=== PATIENT | male | born 1980 | race Caucasian/White ===

== ENCOUNTER → 2018-06-12 22:20 | Outpatient (CLI) | payer BC, SELFPAY ==
[2018-06-12 17:37] VITALS: BMI 33.7
[2018-06-12 22:49] LABS: Absolute Lymphocyte Count 1.81 X10^3/ul (0.83-4.51); Absolute Neutrophil Count 3.3 X10^3/uL (2.0-7.7); Basophil# 0.03 X10^3/uL; Basophil% 0.5 % (0-1); Eosinophil# 0.07 X10^3/uL; Eosinophils% 1.2 % (0-5); Hematocrit 44.2 % (40-54); Hemoglobin 15.4 g/dl (13.0-16.5); Lymphocyte # 1.81 X10^3/ul (4.0); Lymphocyte % 31.9 % (19-41); Mean Corp Hgb Conc 34.8 g/gl (32-36); Mean Corpuscular Hgb 29.8 pg (27.0-32.0); Mean Corpuscular Volume 85.5 fL (80-94); Mean Platelet Vol. 10.4 fl (6.2-12.0); Monocyte# 0.47 X10^3/uL; Monocyte% 8.3 % (0-10); Neutrophil # 3.27 X10^3/uL (2.7-7.7); Neutrophil % 57.7 % (47-70); Platelet Count 210 K/mm3 (150-450); RBC Distribution Width CV 12.8 % (11.6-14.6); RBC Distribution Width SD 38.8 fl (35.1-43.9); Red Blood Count 5.17 M/mm3 (4.6-6.2); White Blood Count 5.7 K/mm3 (4.4-11.0)
[2018-06-12 22:53] LABS: POSITIVE COUNT NO; POSITIVE DIFFERENTIAL NO; POSITIVE MORPHOLOGY NO
[2018-06-12 22:57] LABS: ALB/GLOB Ratio 1.3 RATIO (0.9-2.4); AST(SGOT) 36 U/L (15-37); Alanine Aminotransfer ALT/SGPT 65 U/L (16-61); Albumin, Serum 4.2 g/dL (3.2-5.0); Alkaline Phosphatase 72 U/L (45-117); Anion Gap 9 (5-15); BUN 16 mg/dL (7-18); BUN/Creat Ratio 14.3 RATIO (10-20); Calcium,Total 8.4 mg/dL (8.5-10.1); Chloride 102 mmol/L (98-107); Cholesterol 184 mg/dL (200); Creatinine, Serum 1.12 mg/dL (0.70-1.30); EST Glomerular Filtration Rate 77 mL/min (>60); Est Glom Filt Rate - Afr Amer 93 mL/min (>60); Globulin 3.3 g/dL (2.2-4.2); Glucose 91 mg/dL (74-106); High Density Lipoprotein 51 mg/dL; Potassium 3.7 mmol/L (3.5-5.1); Protein, Total 7.5 g/dL (6.4-8.2); Sodium Level 140 mmol/L (136-145); Triglycerides 117 mg/dL; Very Low Density Lipoprotein 23 mg/dL (5-40)
== END ==
PROVIDERS: Referring Provider Nurse Practitioner; Visit Provider Nurse Practitioner
DX: F41.9 Anxiety disorder, unspecified (principal)
CPT/HCPCS: 80053; 80061; 85025

== ENCOUNTER → 2019-11-17 17:45 | Outpatient (CLI) | payer BC, SELFPAY ==
[2019-11-13 16:11] VITALS: BMI 30.7
== END ==
LOC: MTDU 17:45
PROVIDERS: PCP Nurse Practitioner; Referring Provider Nurse Practitioner; Visit Provider Nurse Practitioner
DX: R42 Dizziness and giddiness (principal)
CPT/HCPCS: 87635; 94799; U0003

== ENCOUNTER 2020-03-01 10:14 | Emergency (ER) | payer BC, SELFPAY ==
[2019-11-13 16:11] VITALS: BMI 30.7
[2020-03-01 10:15] VITALS: BP 118/65; PULSE 69; RESP 16; TEMP 36.6; O2SAT 98; BMI 30.9
--- NOTE | 2020-03-01 10:25 | CT_ITS ---
INDICATION: INTERMITTENT RLQ PAIN, N/D -- SURG-HEMORRHOIDECTOMY EXAMINATION: CT ABDOMEN AND PELVIS WITH CONTRAST - CT Abdomen And Pelvis W/ Contrast Injection TECHNIQUE: Helically acquired images were obtained of the abdomen and pelvis following IV contrast. A radiation dose optimization technique was used for this scan. IV Contrast dosage and agent IV contrast was administered Oral contrast: Was administered COMPARISON: None. FINDINGS: LOWER CHEST: Lung bases are clear. No cardiomegaly or pericardial effusion. LIVER: Homogeneous. No focal mass. GALLBLADDER AND BILIARY TREE: No calcified gallstones. No gallbladder distension or wall edema. No intra- or extrahepatic biliary ductal dilation. PANCREAS: No focal cystic or solid mass. SPLEEN: Normal size without focal cystic or solid mass. ADRENAL GLANDS: No nodules. KIDNEYS AND URETERS: Normal renal size and position. No hydronephrosis or nephrolithiasis. PERITONEUM: No ascites or free air. No other fluid collection. BOWEL: No stomach or bowel distension. No focal inflammatory change. LYMPH NODES: No enlarged mesenteric or retroperitoneal lymph nodes. VESSELS: Aorta is non-dilated. ABDOMINAL WALL: No discrete abdominal wall hernia. BONES: No lytic or blastic abnormality. CT/Abdomen/Pelvis WITH Contrast IMPRESSION: Negative CT abdomen and pelvis with oral and IV contrast. Electronically Signed: Elfego Seymour, at 12:21 EST Tel , Service support ,
--- NOTE | 2020-03-01 10:26 | ED.DCSUM_ITS ---
History of Present Illness Chief Complaint: Abd Pain Informant: Patient Narrative: 39-year-old male presents with right-sided abdominal pain and diarrhea. Tells me that since the beginning of summer he is had some anorexia and unintentional weight loss of about 20 pounds. He states about a month ago he had some abdominal pain and vomiting but it resolved. Pain began yesterday and he was having significant bout of diarrhea. He denies any blood in it. Tells me he had a colonoscopy in his 20s was diagnosed with ulcerative colitis. He states he has not been on any medications for about 10 years. - Past Medical History (1) Anxiety Status: Chronic (2) Depression Status: Chronic Past Medical History - Allergies and Home Meds Allergies/Adverse Reactions: Allergies No Known Allergies Allergy (Verified 03/01/20 10:17) Primary Care Physician: Lara Rivera PROCESS MAINTENANCE TECHNICIAN, PROCESS MAINTENANCE TECHNICIAN-C [Primary Care Provider] - Past Medical History: - - Sort of colitis Surgical History: - - Colonoscopy Smoking Status: Never smoker Drugs: None Review of Systems General: Reports: Weight loss. Denies: Chills, Fever, Sweats Eyes: Denies: Visual changes - bilaterally, Diplopia ENT: Denies: Rhinorrhea, Sore throat Cardiovascular: Denies: Chest pain, Palpitations Respiratory: Denies: Dyspnea, Cough, Dyspnea on exertion Gastrointestinal: Reports: Abdominal pain, Nausea, Diarrhea. Denies: Vomiting, Melena, Hematochezia Genitourinary: Denies: Dysuria, Hematuria, Frequency Musculoskeletal: Denies: Back pain, Extremity Pain Skin: Denies: Rash, Wounds Neurological: Denies: Headache, Weakness, Numbness Physical Exam Vital Signs/Narrative: Vital Signs Temp Pulse Resp BP Pulse Ox 03/01/20 10:15 97.9 F 69 16 118/65 98 Inital Vital Signs reviewed: Yes General: Well nourished, Well developed, No Acute Distress Head: Normocephalic, Atraumatic Eyes: Perrl, EOMI ENT: Moist mucous membranes, No rhinorrhea Neck: Supple, Nontender Cardiovascular: Regular rate, Regular rhythm, No murmurs Respiratory: No distress, CTA bilaterally, Chest nontender Abdomen: Soft, Nondistended, Normal bowel sounds, Tender - Right middle quadrant tenderness to palpation. Negative for: Guarding, Rebound tenderness Back: Nontender, Normal Inspection Extremities: Nontender, No edema Skin: Normal color, No rash Neurological: Alert, Oriented x3, Cranial nerves II-XII grossly intact, Normal Strength, Normal Sensation Psychological: Normal affect, Normal Mood Diagnostic/Tx/Re-eval Clinical Impression(s) from Imaging Studies Abdomen/Pelvis CT 03/01/20 10:25 IMPRESSION: Negative CT abdomen and pelvis with oral and IV contrast. Electronically Signed: Elfego Seymour, at 12:21 EST Tel , Service support , Laboratory Last Values WBC 5.6 K/mm3 (4.4-11.0) 03/01/20 11:00 RBC 5.30 M/mm3 (4.6-6.2) 03/01/20 11:00 Hgb 15.9 g/dL (13.0-16.5) 03/01/20 11:00 Hct 46.2 % (40-54) 03/01/20 11:00 MCV 87.2 fL (80-94) 03/01/20 11:00 MCH 30.0 pg (27.0-32.0) 03/01/20 11:00 MCHC 34.4 g/dL (32-36) 03/01/20 11:00 RDW Std Deviation 38.5 fl (35.1-43.9) 03/01/20 11:00 RDW Coeff of Sher 12.2 % (11.6-14.6) 03/01/20 11:00 Plt Count 224 K/mm3 (150-450) 03/01/20 11:00 MPV 10.3 fl (6.2-12.0) 03/01/20 11:00 Immature Gran % (Auto) 0.200 % (0.0-0.9) 03/01/20 11:00 Neut % (Auto) 61.0 % (47-70) 03/01/20 11:00 Lymph % (Auto) 32.0 % (19-41) 03/01/20 11:00 Mckinley % (Auto) 5.9 % (0-10) 03/01/20 11:00 Eos % (Auto) 0.4 % (0-5) 03/01/20 11:00 Baso % (Auto) 0.5 % (0-1) 03/01/20 11:00 Absolute Neuts (auto) 3.4 X10^3/uL (2.0-7.7) 03/01/20 11:00 Absolute Lymphs (auto) 1.80 X10^3/uL (0.83-4.51) 03/01/20 11:00 Nucleated RBC % 0 % (0-5) 03/01/20 11:00 Sodium 141 mmol/L (136-145) 03/01/20 11:00 Potassium 3.9 mmol/L (3.5-5.1) 03/01/20 11:00 Chloride 105 mmol/L (98-107) 03/01/20 11:00 Carbon Dioxide 31.0 mmol/L (21.0-32.0) 03/01/20 11:00 Anion Gap 5 (5-15) 03/01/20 11:00 BUN 13 mg/dL (7-18) 03/01/20 11:00 Creatinine 1.12 mg/dL (0.70-1.30) 03/01/20 11:00 Estim Creat Clear Calc 89.62 ml/min 03/01/20 11:00 Est GFR (MDRD) Af Amer 93 mL/min (>60) 03/01/20 11:00 Est GFR (MDRD) Non-Af 77 mL/min (>60) 03/01/20 11:00 BUN/Creatinine Ratio 11.6 RATIO (10-20) 03/01/20 11:00 Glucose 90 mg/dL (74-106) 03/01/20 11:00 Lactic Acid 0.6 mmol/L (0.4-1.9) 03/01/20 11:00 Calcium 9.2 mg/dL (8.5-10.1) 03/01/20 11:00 Total Bilirubin 0.50 mg/dL (0.20-1.00) 03/01/20 11:00 AST 19 U/L (15-37) 03/01/20 11:00 ALT 35 U/L (16-61) 03/01/20 11:00 Alkaline Phosphatase 75 U/L (45-117) 03/01/20 11:00 Total Protein 7.8 g/dL (6.4-8.2) 03/01/20 11:00 Albumin 4.1 g/dL (3.2-5.0) 03/01/20 11:00 Globulin 3.7 g/dL (2.2-4.2) 03/01/20 11:00 Albumin/Globulin Ratio 1.1 RATIO (0.9-2.4) 03/01/20 11:00 Lipase 89 U/L (73-393) 03/01/20 11:00 Urine Color Yellow (Yellow) 03/01/20 11:40 Urine Clarity Clear (Clear) 03/01/20 11:40 Urine pH 6.0 (5.0 - 8.0) 03/01/20 11:40 Ur Specific [place] 1.015 (1.002-1.030) 03/01/20 11:40 Urine Protein Negative mg/dl (Negative) 03/01/20 11:40 Urine Glucose (UA) Normal mg/dl (Normal) 03/01/20 11:40 Urine Ketones Negative mg/dl (Negative) 03/01/20 11:40 Urine Occult Blood Negative /ul (Negative) 03/01/20 11:40 Urine Nitrite Negative (Negative) 03/01/20 11:40 Urine Bilirubin Negative mg/dL (Negative) 03/01/20 11:40 Urine Urobilinogen Normal mg/dl (Normal) 03/01/20 11:40 Ur Leukocyte Esterase Negative /ul (Negative) 03/01/20 11:40 Urine RBC 0 SEEN /hpf (0-5) 03/01/20 11:40 Urine WBC 0 SEEN /hpf (0-5) 03/01/20 11:40 Ur Squamous Epith Cells 0 SEEN /hpf (0-5) 03/01/20 11:40 Urine Bacteria 0 SEEN /hpf (None Seen) 03/01/20 11:40 Urine Mucus 0 SEEN /hpf (<or=2+) 03/01/20 11:40 - Medical Decision Making Normal white blood cell count. No evidence acute cholecystitis or acute appendicitis. My concern is with his ulcerative colitis diagnosis. He has had unintentional weight loss. He notes 2 episodes now of abdominal pain. I think is reasonable do a short course of steroids. I would provide him with surgery so that if he would like to call them for a repeat colonoscopy. He should visit with his doctor. ED Disposition - Plan for ED Patient: Disposition: Home or Assisted Living Diagnosis: Acute abdominal pain, Ulcerative colitis Instructions: ED Colitis Ulcerative Prescriptions: Prednisone [Deltasone] 60 mg PO DAILY #15 tab Prescription Printed Referrals: Lara Rivera NP, PROCESS MAINTENANCE TECHNICIAN-C [Primary Care Provider] - As soon as possible Shiv Almanza MD [STAFF PHYSICIAN] - (for colonoscopy)
[2020-03-01] MEDS: Ondansetron 4 MG/2 ML Vial IV (11:09)
[2020-03-01] MEDS: Ketorolac 30 MG/ML Syringe IV (11:09)
[2020-03-01 11:24] LABS: Absolute Neutrophil Count 3.4 X10^3/uL (2.0-7.7); Basophil# 0.03 X10^3/uL; Basophil% 0.5 % (0-1); Eosinophil# 0.02 X10^3/uL; Eosinophils% 0.4 % (0-5); Hematocrit 46.2 % (40-54); Hemoglobin 15.9 g/dL (13.0-16.5); Mean Corp Hgb Conc 34.4 g/dL (32-36); Mean Corpuscular Volume 87.2 fL (80-94); Mean Platelet Vol. 10.3 fl (6.2-12.0); Monocyte# 0.33 X10^3/uL; Monocyte% 5.9 % (0-10); NRBC Flagged by Analyzer 0 % (0-5); Neutrophil # 3.43 X10^3/uL (2.7-7.7); Platelet Count 224 K/mm3 (150-450); RBC Distribution Width CV 12.2 % (11.6-14.6); RBC Distribution Width SD 38.5 fl (35.1-43.9); White Blood Count 5.6 K/mm3 (4.4-11.0)
[2020-03-01 11:32] LABS: ALB/GLOB Ratio 1.1 RATIO (0.9-2.4); AST(SGOT) 19 U/L (15-37); Alanine Aminotransfer ALT/SGPT 35 U/L (16-61); Albumin, Serum 4.1 g/dL (3.2-5.0); Alkaline Phosphatase 75 U/L (45-117); Anion Gap 5 (5-15); BUN 13 mg/dL (7-18); BUN/Creat Ratio 11.6 RATIO (10-20); Calcium,Total 9.2 mg/dL (8.5-10.1); Chloride 105 mmol/L (98-107); Creatinine, Serum 1.12 mg/dL (0.70-1.30); EST Glomerular Filtration Rate 77 mL/min (>60); Est Glom Filt Rate - Afr Amer 93 mL/min (>60); Estimated Creatinine Clearance 89.62 ml/min; Globulin 3.7 g/dL (2.2-4.2); Glucose 90 mg/dL (74-106); Lipase 89 U/L (73-393); Potassium 3.9 mmol/L (3.5-5.1); Protein, Total 7.8 g/dL (6.4-8.2); Sodium Level 141 mmol/L (136-145)
[2020-03-01 11:45] LABS: Lactic Acid 0.6 mmol/L (0.4-1.9)
[2020-03-01 11:46] LABS: Bacteria 0 SEEN /hpf (None Seen); Mucous, Urine 0 SEEN /hpf (<or=2+); Red Blood Cells-Urine 0 SEEN /hpf (0-5); Squamous Epithelial Cells - UA 0 SEEN /hpf (0-5); White Blood Cells 0 SEEN /hpf (0-5)
[2020-03-01 11:48] LABS: Color, Urine Yellow (Yellow); Glucose, Dipstick Normal (Normal); Ketone-Dipstick Negative (Negative); Leukocyte Esterase-Dipstick Negative /ul (Negative); Nitrite-Dipstick Negative (Negative); Occult Blood-Urine Negative /ul (Negative); Protein-Dipstick Negative (Negative); Specific Gravity, Urine 1.015 (1.002-1.030); Urine Bilirubin Dipstick Negative (Negative); Urine Clarity Clear (Clear); Urine Urobilinogen Normal (Normal)
[2020-03-01 12:19] VITALS: BP 118/74; PULSE 68; RESP 16; O2SAT 99
[2020-03-01 13:04] VITALS: BP 112/78; PULSE 79; RESP 14; O2SAT 99
== END 2020-03-01 13:05 | disposition home or self-care (01) ==
PROVIDERS: Emergency Provider Emergency Medicine; PCP Nurse Practitioner
DX: K51.90 Ulcerative colitis, unspecified, without complications (principal); R63.4 Abnormal weight loss; F41.9 Anxiety disorder, unspecified; F32.9 Major depressive disorder, single episode, unspecified
CPT/HCPCS: 74177; 80053; 81001; 83605; 83690; 85025; 96374; 96375; 99283; J7030; Q9967; A4216; J2405

== ENCOUNTER → 2020-12-31 12:01 | Outpatient (CLI) | payer BC, SELFPAY | PROVIDERS: PCP Nurse Practitioner; Referring Provider Nurse Practitioner; Visit Provider Nurse Practitioner | DX: U07.1 COVID-19 (principal) | CPT/HCPCS: 87635; C9803; U0005; U0003 ==

== ENCOUNTER → 2023-06-04 | Outpatient (CLI) | payer BC, SELFPAY ==
[2023-06-04 22:03] LABS: Absolute Lymphocyte Count 1.97 X10^3/uL (0.83-4.51); Absolute Neutrophil Count 4.1 X10^3/uL (2.0-7.7); Basophil# 0.06 X10^3/uL; Basophil% 0.9 % (0-1); Eosinophil# 0.11 X10^3/uL; Eosinophils% 1.6 % (0-5); Hematocrit 44.9 % (40-54); Hemoglobin 15.3 g/dL (13.0-16.5); Lymphocyte # 1.97 X10^3/ul (0.83-4.51); Lymphocyte % 28.8 % (19-41); Mean Corp Hgb Conc 34.1 g/dL (32-36); Mean Corpuscular Hgb 29.5 pg (27.0-32.0); Mean Corpuscular Volume 86.5 fL (80-94); Monocyte# 0.54 X10^3/uL; Monocyte% 7.9 % (0-10); NRBC Flagged by Analyzer 0 % (0-5); Neutrophil # 4.13 X10^3/uL (2.7-7.7); Neutrophil % 60.5 % (47-70); Platelet Count 242 K/mm3 (150-450); RBC Distribution Width CV 12.4 % (11.6-14.6); RBC Distribution Width SD 39.2 fl (35.1-43.9); Red Blood Count 5.19 M/mm3 (4.6-6.2); White Blood Count 6.8 K/mm3 (4.4-11.0)
[2023-06-04 22:24] LABS: ALB/GLOB Ratio 1.1 RATIO (0.9-2.4); AST(SGOT) 27 U/L (15-37); Alanine Aminotransfer ALT/SGPT 43 U/L (16-61); Alkaline Phosphatase 75 U/L (45-117); Anion Gap 5 (5-15); BUN 25 mg/dL (7-18); BUN/Creat Ratio 22.9 RATIO (10-20); Calcium,Total 8.8 mg/dL (8.5-10.1); Chloride 102 mmol/L (98-107); Cholesterol 187 mg/dL (200); Creatinine, Serum 1.09 mg/dL (0.70-1.30); EST Glomerular Filtration Rate 78 mL/min (>60); Est Glom Filt Rate - Afr Amer 94 mL/min (>60); Globulin 3.8 g/dL (2.2-4.2); Glucose 99 mg/dL (74-106); High Density Lipoprotein 41 mg/dL; Potassium 3.8 mmol/L (3.5-5.1); Protein, Total 7.8 g/dL (6.4-8.2); Sodium Level 137 mmol/L (136-145); Triglycerides 307 mg/dL; Very Low Density Lipoprotein 61 mg/dL (5-40)
[2023-06-04 22:27] LABS: Hemoglobin A1c 5.2 % (3.8-5.6)
--- OUTSIDE RECORDS SUMMARY | 2023-06-05 00:29 | XMS RPT_ITS | CCD ---
Author Name Unknown Address [address] [place] [address] Organization [facility] Results Test Name Value Interpretation Reference Range Facil ity Summary Purpose Family History No Family History Records FoundNo Family History Records FoundNo Family History Records Found Advance Directives No Advanced Directives Records FoundNo Advanced Directives Records FoundNo Advanced Directives Records Found Additional Source Comments (unrecognized sect ion and content) No Status Records FoundNo Status Records FoundNo Status Records Found INFORMATION SOURCE (unrecogn ized section and content) DATE CREATED AUTHOR AUTHOR'S ORGANIZ ATION 01/12/2019 [facility] DATE CREATED AUTHOR AUTHOR'S ORGANIZ ATION 03/13/2020 [facility] FOR RECORDS PERTAINING TO PATIENTS WHO ARE OR HAVE BEEN ENROLLED IN A CHEMICAL DEPENDENCY/SUBSTANCEABUSE PROGRAM, SOME INFORMATION MAY BE OMITTED. This clinical summary was aggregated from multiple sources. Caution should be exercised in using it in the provision of clinical care. This summary normalizes information from multiple sources, and as a consequence, information in this document may materially change the coding, format and clinical context of patient data. In addition, data may be omitted in some cases. CLINICAL DECISIONS SHOULD BE BASED ON THE PRIMARY CLINICAL RECORDS. [facility] [facility]. provides no warranty or guarantee of the accuracy or completeness of information in this document.
== END | disposition home or self-care (01) ==
PROVIDERS: PCP Nurse Practitioner; Visit Provider Nurse Practitioner
DX: R73.9 Hyperglycemia, unspecified (principal); E78.00 Pure hypercholesterolemia, unspecified; F41.9 Anxiety disorder, unspecified; F32.9 Major depressive disorder, single episode, unspecified
CPT/HCPCS: 80053; 80061; 83036; 85025

== ENCOUNTER → 2024-05-16 | Outpatient (CLI) | payer BC, SELFPAY ==
[2024-05-17 01:38] LABS: Absolute Lymphocyte Count 1.26 X10^3/uL (0.83-4.51); Absolute Neutrophil Count 3.4 X10^3/uL (2.0-7.7); Basophil# 0.03 X10^3/uL; Basophil% 0.6 % (0-1); Eosinophil# 0.08 X10^3/uL; Eosinophils% 1.5 % (0-5); Hematocrit 44.9 % (40-54); Hemoglobin 15.7 g/dL (13.0-16.5); Lymphocyte # 1.26 X10^3/ul (0.83-4.51); Lymphocyte % 24.1 % (19-41); Mean Corpuscular Volume 85.9 fL (80-94); Mean Platelet Vol. 11.1 fl (6.2-12.0); Monocyte# 0.46 X10^3/uL; Monocyte% 8.8 % (0-10); NRBC Flagged by Analyzer 0 % (0-5); Neutrophil # 3.37 X10^3/uL (2.7-7.7); Neutrophil % 64.6 % (47-70); Platelet Count 228 K/mm3 (150-450); RBC Distribution Width CV 12.8 % (11.6-14.6); RBC Distribution Width SD 39.7 fl (35.1-43.9); Red Blood Count 5.23 M/mm3 (4.6-6.2); White Blood Count 5.2 K/mm3 (4.4-11.0)
[2024-05-17 01:52] LABS: ALB/GLOB Ratio 1.1 RATIO (0.9-2.4); AST(SGOT) 28 U/L (15-37); Alanine Aminotransfer ALT/SGPT 48 U/L (16-61); Albumin, Serum 4.1 g/dL (3.2-5.0); Alkaline Phosphatase 75 U/L (45-117); Anion Gap 6 (5-15); BUN 16 mg/dL (7-18); BUN/Creat Ratio 13.1 RATIO (10-20); Calcium,Total 9.2 mg/dL (8.5-10.1); Chloride 100 mmol/L (98-107); Cholesterol 200 mg/dL (200); Creatinine, Serum 1.22 mg/dL (0.70-1.30); EST Glomerular Filtration Rate 68 mL/min (>60); Est Glom Filt Rate - Afr Amer 82 mL/min (>60); Globulin 3.7 g/dL (2.2-4.2); Glucose 103 mg/dL (74-106); High Density Lipoprotein 53 mg/dL; Potassium 3.9 mmol/L (3.5-5.1); Protein, Total 7.8 g/dL (6.4-8.2); Sodium Level 138 mmol/L (136-145); Triglycerides 170 mg/dL; Very Low Density Lipoprotein 34 mg/dL (5-40)
[2024-05-18 08:07] LABS: Testosterone, Serum 4226 89 ng/dL (264-916)
== END | disposition home or self-care (01) ==
PROVIDERS: PCP Nurse Practitioner; Referring Provider Nurse Practitioner; Visit Provider Nurse Practitioner
DX: E78.1 Pure hyperglyceridemia (principal); R79.89 Other specified abnormal findings of blood chemistry; F41.9 Anxiety disorder, unspecified; F32.9 Major depressive disorder, single episode, unspecified
CPT/HCPCS: 80053; 80061; 84403; 85025

== ENCOUNTER → 2024-12-30 | Outpatient (CLI) | payer BC, SELFPAY ==
--- OUTSIDE RECORDS SUMMARY | 2024-12-30 21:48 | XMS RPT_ITS | CCD ---
Author Organization [facility] Inform ion Partnership [facility] Care Team Providers Care Technical Professional Name Role Phone Miguel FEED RESEARCH TECHNICIAN, FEED RESEARCH TECHNICIAN-C Kandy Primary Care Provider Miguel FEED RESEARCH TECHNICIAN, FEED RESEARCH TECHNICIAN-C Kandy Referring Provider Addy MARTINEZ, MICHELLE Martinez Attending Provider [phone] Miguel SALEH, Kandy Referring Unavailable Miguel SALEH, Kandy Attending Unavailable Kandy Nice NP Primary Care Unavailable KANDY NICE Primary Care Unavailable EDMOND TOLENTINO Referring Unavailable Medications Current Medications Medication Drug Class(es) Dates Sig (Normalized) Sig (Original) busPIRone hydrochloride 10 mg oral tablet (13 sources) Start: 06-04-2023 End: 06-04-2023 take 10 mg by mouth once daily Buspirone Active 10 MG PO DAILY June 04, 2023 7:28pm Start: 11-05-2020 End: 11-05-2020 take 10 mg by mouth once daily Buspirone Discontinued 10 MG PO DAILY November 04, 2020 11:00pm November 05, 2020 7:44pm Start: 07-09-2019 End: 06-04-2023 take 1 tablet by mouth once daily in the morning Buspirone Discontinued 15 MG PO DAILY 45 May 08, 2022 11:02am June 04, 2023 7:27pm 1 tab in the Am and 0.5tab at PM Start: 05-02-2019 End: 07-09-2019 take 20 mg by mouth twice daily Buspirone Discontinued 20 MG PO TWICE A DAY 120 May 02, 2019 12:00am July 09, 2019 3:07pm Start: 03-18-2019 End: 05-02-2019 Buspirone Discontinued 10 MG PO TWICE A DAY 70 March 18, 2019 12:00am May 02, 2019 7:43pm increase to 15 mg 2 x a day in 5 days increase to 20 mg 2 x a day LORazepam 0.5 mg oral tablet (3 sources) Benzodiazepine Start: 05-05-2022 End: 06-04-2023 take 0.5 mg by mouth twice daily Lorazepam Active 0.5 MG PO TWICE A DAY June 04, 2023 7:28pm Start: 03-01-2020 End: 07-15-2020 take 0.5 mg by mouth twice daily Lorazepam Discontinued 0.5 MG PO TWICE A DAY March 01, 2020 12:00am July 15, 2020 6:05pm sertraline 100 mg oral tablet (10 sources) Serotonin Reuptake Inhibitor Start: 07-09-2019 End: 06-04-2023 take 100 mg by mouth once daily Sertraline Active 100 MG PO DAILY June 04, 2023 7:28pm Start: 06-12-2018 End: 07-07-2019 take 200 mg by mouth once daily Sertraline Discontinue d 200 MG PO daily 60 June 12, 2018 12:00am July 06, 2019 11:07pm Start: 05-22-2017 End: 06-12-2018 take 1 tablet by mouth once daily Sertraline (Zoloft) 25 mg tablet Discontinued 25 MG PO daily May 22, 2017 12:00am June 12, 2018 5:43pm Completed/Discontinued Medications Medication Drug Class(es) Dates Sig (Normalized) Sig (Original) amoxicillin 500 mg oral capsule (1 source) Penicillin-class Antibacterial Start: 04-07-2022 End: 04-17-2022 take 500 mg by mouth three times daily Amoxicillin Discontinued 500 MG PO THREE TIMES A DAY 05 02April 07, 2022 12:00am April 17, 2022 12:04am amoxicillin 875 mg / clavulanate 125 mg oral tablet (1 source) Penicillin-class Antibacterial Start: 12-29-2020 End: 04-28-2021 take 1 tablet by mouth twice daily Amoxicillin-Pot Clavulanate Discontinued 1 TABLET PO TWICE A DAY December 28, 2020 11:00pm April 28, 2021 5:56pm azithromycin 250 mg oral tablet (1 source) Macrolide Antimicrobial Start: 03-09-2022 End: 03-14-2022 Azithromycin Discontinued 250 MG PO daily 6 March 09, 2022 12:00am March 14, 2022 12:04am 2 po qd for 1 day then 1 po qd for 4 days with food or after eating buPROPion hydrochloride 100 mg oral tablet (1 source) Aminoketone Start: 03-11-2019 End: 03-18-2019 take 100 mg by mouth twice daily Bupropion Hcl Discontinued 100 MG PO TWICE A DAY March 11, 2019 12:00am March 18, 2019 8:31pm dicyclomine hydrochloride 20 mg oral tablet (3 sources) Anticholinergic Start: 04-28-2021 End: 06-04-2023 take 20 mg by mouth twice daily Dicyclomine Discontinued 20 MG PO TWICE A DAY May 05, 2022 6:26pm June 04, 2023 7:26pm Start: 07-15-2020 End: 04-28-2021 take 20 mg by mouth three times daily Dicyclomine Discontinued 20 MG PO THREE TIMES A DAY July 14, 2020 11:00pm April 28, 2021 6:00pm hydrOXYzine hydrochloride 10 mg oral tablet (1 source) Antihistamine Start: 03-11-2019 End: 07-09-2019 take 10 mg by mouth three to four times daily Hydroxyzine Hcl Discontinued 10 MG PO 3 to 4 times per day March 11, 2019 12:00am July 09, 2019 3:06pm methylPREDNISolone 4 mg oral tablet (1 source) Corticosteroid Start: 04-07-2022 End: 05-05-2022 take 1 tablet by mouth once Methylprednisolone (Medrol (Sina)) 4 mg tablets,dose pack Discontinued 0 PO per package directions April 07, 2022 12:00am May 05, 2022 6:24pm PO PER PKG DIR metroNIDAZOLE 250 mg oral tablet (1 source) Nitroimidazole Antimicrobial Start: 03-01-2020 End: 03-11-2020 take 250 mg by mouth three times daily Metronidazole Discontinued 250 MG PO THREE TIMES A DAY 05 02March 01, 2020 12:00am March 11, 2020 12:02am predniSONE 20 mg oral tablet (2 sources) Start: 03-09-2022 End: 05-05-2022 take 40 mg by mouth once daily Prednisone Discontinued 40 MG PO DAILY March 09, 2022 12:00am May 05, 2022 6:24pm Start: 03-01-2020 End: 07-15-2020 take 60 mg by mouth once daily at mealtime Prednisone Discontinued 60 MG PO DAILY March 01, 2020 12:00am July 15, 2020 6:05pm With food tobramycin 3 mg/ml ophthalmic solution (1 source) Aminoglycoside Antibacterial Start: 06-16-2021 End: 03-09-2022 take 0.3 drop(s) into the eye(s) every two hours Tobramycin (Tobrex) 0.3 % drops Discontinued 1 DRP OPHTHALMIC Q2H 5 June 16, 2021 12:00am March 09, 2022 5:06pm while awake for 3 days to both eyes Problems Active Problems Problem Classification Problem Date Documented Da te Episodic/Chronic Abdominal pain (1 source) Acute abdominal pain; Translations: [Unspecified abdominal pain] 03-02-2020 Episodic Administrative/social admission (2 sources) Administrative reason for encounter; Translations: [Encounter for other administrative examinations] 05-22-2017 Episodic Anxiety disorders (2 sources) Anxiety; Translations: [Anxiety disorder, unspecified] 03-01-2020 Chronic Chronic obstructive pulmonary disease and bronchiectasis (1 source) Bronchitis; Translations: [Bronchitis, not specified as acute or chronic] 03-09-2022 Episodic Conditions associated with dizziness or vertigo (1 source) Dizziness; Translations: [Dizziness and giddiness] 03-01-2020 Episodic Diabetes mellitus without complication (1 source) Hyperglycemia; Translations: [Hyperglycemia, unspecified] 06-04-2023 Episodic Disorders of lipid metabolism (2 sources) Hypercholesterolemia ; Translations: [Pure hypercholesterolemia , unspecified] Onset: 06-03-2024 06-04-2023 Chronic E Codes: Adverse effects of medical drugs (1 source) Adverse reaction to drug; Translations: [Adverse effect of unspecified drugs, medicaments and biological substances, initial encounter] 05-22-2022 Episodic Immunizations and screening for infectious disease (1 source) Contact with or exposure to other viral diseases; Translations: [Exposure to confirmed case of COVID-19] 12-30-2020 Episodic Inflammation; infection of eye (except that caused by tuberculosis or sexually transmitteddisease) (2 sources) Acute conjunctivitis; Translations: [Unspecified acute conjunctivitis, bilateral] 06-16-2021 Episodic Influenza (1 source) Influenza due to Influenza A virus; Translations: [Influenza due to other identified influenza virus with other respiratory manifestations] 03-09-2022 Episodic Mood disorders (1 source) Depressive disorder; Translations: [Depression] 03-01-2020 Chronic Nausea and vomiting (1 source) Nausea and vomiting; Translations: [Nausea with vomiting, unspecified] 03-01-2020 Episodic Other endocrine disorders (1 source) Testicular hypofunction; 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] Onset: 06-10-2024 Chronic Other gastrointestinal disorders (1 source) Irritable bowel syndrome; Translations: [Irritable bowel syndrome without diarrhea] 04-28-2021 Chronic Other gastrointestinal disorders (1 source) Constipation; Translations: [Constipation, unspecified] 05-22-2022 Episodic Other lower respiratory disease (1 source) Cough; Translations: [Cough] 12-29-2020 Episodic Other upper respiratory infections (1 source) Maxillary sinusitis; Translations: [Chronic maxillary sinusitis] 12-29-2020 Chronic Other upper respiratory infections (1 source) Acute frontal sinusitis; Translations: [Acute frontal sinusitis, unspecified] 04-07-2022 Episodic Otitis media and related conditions (1 source) Otitis media of left ear; Translations: [Otitis media, unspecified, left ear] 03-01-2020 Episodic Regional enteritis and ulcerative colitis (1 source) Ulcerative colitis; Translations: [Ulcerative colitis, unspecified, without complications] 03-02-2020 Chronic Spondylosis; intervertebral disc disorders; other back problems (1 source) Thoracic back pain; Translations: [Pain in thoracic spine] 05-30-2021 Episodic Past or Other Problems Problem Classification Problem Date Documented Da te Episodic/Chronic Unclassified (1 source) HEMORROIDS 11-07-2021 Results Test Name Value Interpretation Reference Range Facility SerPl-aCncon 06-10-2024 Lutropin Qn 4.2 m[IU]/mL Normal 1.7-8.6 [facility] Comment on above: Order Comment: Speci men Type: BLOOD SPECIMEN Ordering Facility: [facility] Address: [address] [place] [address], [address], [place] [id number] Performed By: #### 1 0501-5 #### [facility] CLIA [id number] [address] [place] [address] [place] PSA/PROSTATE SPECIFIC ANTIGE N SCREENINGon 06-10-2024 Prostate specific Ag [Mass/Vol] 0.43 ng/mL Normal <2.60 [facility] Comment on above: Order Comment: Speci men Type: BLOOD SPECIMEN Ordering Facility: [facility] Address: [address] [place] [address] Result Comment: Tota l PSA test methodology used is the Electrochemiluminescence Immunoassay by [employer]. Total PSA values by differing methodologies cannot be interchanged. Performed By: #### P SAS1 #### [facility] CLIA [id number] [address] [place] [address] [place] Prolactin SerPl-mCncon 06-10 Prolactin [Mass/Vol] 17.7 ng/mL Normal 4.1-25.1 [facility] Comment on above: Order Comment: Speci men Type: BLOOD SPECIMEN Ordering Facility: [facility] Address: [address] [place] [address] Result Comment: Prol actin test is performed using the [employer] Electrochemiluminescence Immunoassay method. Results obtained with different methods or kits cannot be used interchangeably. Performed By: #### 2 842-3 #### [facility] CLIA [id number] [address] [place] [address] [place] Testost SerPl-mCncon 025 Testosterone [Mass/Vol] 264 ng/dL Normal 193-824 [facility] Comment on above: Order Comment: Speci men Type: BLOOD SPECIMEN Ordering Facility: [facility] Address: [address] [place] [address], [address] [place] [address] Result Comment: A te stosterone level in the 193-320 ng/dL range with associated clinical symptoms is considered low and may indicate hypogonadism (from NEJM 2010 363:123-135). Results >320 ng/dL are considered normal. Performed By: #### 2 986-8 #### [facility] CLIA [id number] [address] [place] [address] [place] Testosterone, Serum 4226on 0 2- Testosterone [Mass/Vol] 89 ng/dL Low 264-916 [facility] Comment on above: Result Comment: Adul t male reference interval is based on a population of healthy nonobese males (BMI <30) between 19 and 39 years old. ricardo Wilson.al. JCEM 2017,102;5740-9914. PMID: [id number]. Performed at: [address] [id number] Hydrometallurgical Engineer: Servando Mullins PhD, Phone: [phone] Performed By: #### L 3100.5200, L100.0100, L500.4100, L500.4050 #### [facility] [address] [place], [address] CBC W/Diff, Automatedon 02- Absolute Lymph 1.26 X10 3/uL Normal 0.83-4.51 [facility] Comment on above: Performed By: #### L 3100.5200, L100.0100, L500.4100, L500.4050 #### [facility] [address] [place], [address] Absolute Neut 3.4 X10 3/uL Normal 2.0-7.7 [facility] Comment on above: Performed By: #### L 3100.5200, L100.0100, L500.4100, L500.4050 #### [facility] [address] [place], [address] Basophils/100 WBC (Bld) 0.6 % Normal 0-1 [facility] Comment on above: Performed By: #### L 3100.5200, L100.0100, L500.4100, L500.4050 #### [facility] [address] [place], [address] Eosinophils/100 WBC (Bld) 1.5 % Normal 0-5 [facility] Comment on above: Performed By: #### L 3100.5200, L100.0100, L500.4100, L500.4050 #### [facility] [address] [place], [address] Erythrocyte distribution width (RBC) [Ratio] 12.8 % Normal 11.6-14.6 [facility] Comment on above: Performed By: #### L 3100.5200, L100.0100, L500.4100, L500.4050 #### [facility] [address] [place], [address] Hematocrit (Bld) [Volume fraction] 44.9 % Normal 40-54 [facility] Comment on above: Performed By: #### L 3100.5200, L100.0100, L500.4100, L500.4050 #### [facility] [address] [place], [address] Hemoglobin (Bld) [Mass/Vol] 15.7 g/dL Normal 13.0-16.5 [facility] Comment on above: Performed By: #### L 3100.5200, L100.0100, L500.4100, L500.4050 #### [facility] [address] [place], [address] IG% 0.400 Normal 0.0-0.9 [facility] Comment on above: Result Comment: IG% - Immature Granulocytes (promyelocytes, myelocytes and metamyelocytes) > 1% indicates that a LEFT SHIFT is Present. Performed By: #### L 3100.5200, L100.0100, L500.4100, L500.4050 #### [facility] [address] [place], [address] Lymphocytes/100 WBC (Bld) 24.1 % Normal 19-41 [facility] Comment on above: Performed By: #### L 3100.5200, L100.0100, L500.4100, L500.4050 #### [facility] [address] [place], [address] MCH (RBC) [Entitic mass] 30.0 pg Normal 27.0-32.0 [facility] Comment on above: Performed By: #### L 3100.5200, L100.0100, L500.4100, L500.4050 #### [facility] [address] [place], [address] MCHC (RBC) [Mass/Vol] 35.0 g/dL Normal 32-36 [facility] Comment on above: Performed By: #### L 3100.5200, L100.0100, L500.4100, L500.4050 #### [facility] [address] [place], [address] MCV (RBC) [Entitic vol] 85.9 fL Normal 80-94 [facility] Comment on above: Performed By: #### L 3100.5200, L100.0100, L500.4100, L500.4050 #### [facility] [address] [place], [address] Monocytes/100 WBC (Bld) 8.8 % Normal 0-10 [facility] Comment on above: Performed By: #### L 3100.5200, L100.0100, L500.4100, L500.4050 #### [facility] [address] [place], [address] Neutrophils/100 WBC (Bld) 64.6 % Normal 47-70 [facility] Comment on above: Performed By: #### L 3100.5200, L100.0100, L500.4100, L500.4050 #### [facility] [address] [place], [address] Nucleated RBC (Bld) [#/Vol] 0 10*3/uL Normal 0-5 [facility] Comment on above: Performed By: #### L 3100.5200, L100.0100, L500.4100, L500.4050 #### [facility] [address] [place], [address] Platelet mean volume (Bld) [Entitic vol] 11.1 fL Normal 6.2-12.0 [facility] Comment on above: Performed By: #### L 3100.5200, L100.0100, L500.4100, L500.4050 #### [facility] [address] [place], [address] Platelets (Bld) [#/Vol] 228 10*3/uL Normal 150-450 [facility] Comment on above: Performed By: #### L 3100.5200, L100.0100, L500.4100, L500.4050 #### [facility] [address] [place], [address] RBC (Bld) [#/Vol] 5.23 10*6/uL Normal 4.6-6.2 [facility] Comment on above: Performed By: #### L 3100.5200, L100.0100, L500.4100, L500.4050 #### [facility] [address] [place], [address] RDW SD 39.7 fl Normal 35.1-43.9 [facility] Comment on above: Performed By: #### L 3100.5200, L100.0100, L500.4100, L500.4050 #### [facility] [address] [place], [address] WBC (Bld) [#/Vol] 5.2 10*3/uL Normal 4.4-11.0 [facility] Comment on above: Performed By: #### L 3100.5200, L100.0100, L500.4100, L500.4050 #### [facility] [address] [place], [address] Comprehensive Metabolic Prof ilon 05-17-2024 Albumin [Mass/Vol] 4.1 g/dL Normal 3.2-5.0 [facility] Comment on above: Performed By: #### L 3100.5200, L100.0100, L500.4100, L500.4050 #### [facility] [address] [place], [address] Albumin/Globulin [Mass ratio] 1.1 {ratio} Normal 0.9-2.4 [facility] Comment on above: Performed By: #### L 3100.5200, L100.0100, L500.4100, L500.4050 #### [facility] [address] [place], [address] ALK P 75 U/L Normal 45-117 [facility] Comment on above: Performed By: #### L 3100.5200, L100.0100, L500.4100, L500.4050 #### [facility] [address] [place], [address] ALT [Catalytic activity/Vol] 48 U/L Normal 16-61 [facility] Comment on above: Performed By: #### L 3100.5200, L100.0100, L500.4100, L500.4050 #### [facility] [address] [place], [address] AST [Catalytic activity/Vol] 28 U/L Normal 15-37 [facility] Comment on above: Performed By: #### L 3100.5200, L100.0100, L500.4100, L500.4050 #### [facility] [address] [place], [address] Bilirubin [Mass/Vol] 0.30 mg/dL Normal 0.20-1.00 [facility] Comment on above: Result Comment: For patients on eltrombopag therapy, use of Dimension [place] TBIL is not recommended. Performed By: #### L 3100.5200, L100.0100, L500.4100, L500.4050 #### [facility] [address] [place], [address] BUN/CRE 13.1 RATIO Normal 10-20 [facility] Comment on above: Performed By: #### L 3100.5200, L100.0100, L500.4100, L500.4050 #### [facility] [address] [place], [address] CA,Total 9.2 mg/dL Normal 8.5-10.1 [facility] Comment on above: Performed By: #### L 3100.5200, L100.0100, L500.4100, L500.4050 #### [facility] [address] [place], [address] Chloride [Moles/Vol] 100 mmol/L Normal 98-107 [facility] Comment on above: Performed By: #### L 3100.5200, L100.0100, L500.4100, L500.4050 #### [facility] [address] [place], [address] CO2 [Moles/Vol] 31.0 mmol/L Normal 21.0-32.0 [facility] Comment on above: Performed By: #### L 3100.5200, L100.0100, L500.4100, L500.4050 #### [facility] [address] [place], [address] Creatinine [Mass/Vol] 1.22 mg/dL Normal 0.70-1.30 [facility] Comment on above: Result Comment: The validity of the calculated GFR GFRAA in patients over 70 years has not been determined. Clinical correlation is essential. Performed By: #### L 3100.5200, L100.0100, L500.4100, L500.4050 #### [facility] [address] [place], [address] EST GFR - AA 82 mL/min Normal >60 [facility] Comment on above: Result Comment: Afri can [place] GFR Calc Performed By: #### L 3100.5200, L100.0100, L500.4100, L500.4050 #### [facility] [address] [place], [address] GAP 6 Normal 5-15 [facility] Comment on above: Performed By: #### L 3100.5200, L100.0100, L500.4100, L500.4050 #### [facility] [address] [place], [address] GFR/1.73 sq M.predicted among non-blacks MDRD (S/P/Bld) [Vol rate/Area] 68 mL/min/{1.73_m2} Normal >60 [facility] Comment on above: Result Comment: Non- GFR Calc Performed By: #### L 3100.5200, L100.0100, L500.4100, L500.4050 #### [facility] [address] [place], [address] Globulin (S) [Mass/Vol] 3.7 g/dL Normal 2.2-4.2 [facility] Comment on above: Performed By: #### L 3100.5200, L100.0100, L500.4100, L500.4050 #### [facility] [address] [place], [address] Glucose [Mass/Vol] 103 mg/dL Normal 74-106 [facility] Comment on above: Result Comment: Fast ing Glucose result from 100 to 125 mg/dL suggests IMPAIRED HOMEOSTASIS per A.D.A. criteria. Performed By: #### L 3100.5200, L100.0100, L500.4100, L500.4050 #### [facility] [address] [place], [address] Potassium [Moles/Vol] 3.9 mmol/L Normal 3.5-5.1 [facility] Comment on above: Performed By: #### L 3100.5200, L100.0100, L500.4100, L500.4050 #### [facility] [address] [place], [address] Sodium [Moles/Vol] 138 mmol/L Normal 136-145 [facility] Comment on above: Performed By: #### L 3100.5200, L100.0100, L500.4100, L500.4050 #### [facility] [address] [place], [address] T PROT 7.8 g/dL Normal 6.4-8.2 [facility] Comment on above: Performed By: #### L 3100.5200, L100.0100, L500.4100, L500.4050 #### [facility] [address] [place], [address] Urea nitrogen [Mass/Vol] 16 mg/dL Normal 7-18 [facility] Comment on above: Performed By: #### L 3100.5200, L100.0100, L500.4100, L500.4050 #### [facility] [address] [place], [address] Lipid Profileon 05-17-2024 Cholesterol [Mass/Vol] 200 mg/dL Normal 200 [facility] Comment on above: Result Comment: <200 mg/dL Desirable 200-240 mg/dL Borderline >240 mg/dL High Risk Performed By: #### L 3100.5200, L100.0100, L500.4100, L500.4050 #### [facility] [address] [place], [address] Cholesterol in HDL [Mass/Vol] 53 mg/dL Normal [facility] Comment on above: Result Comment: The drugs N-Acetylcysteine and Metamizole may falsely depress this assay. Reference Range HDL <40 mg/dL Low HDL Cholesterol HDL >or= 60 mg/dL High HDL Cholesterol Performed By: #### L 3100.5200, L100.0100, L500.4100, L500.4050 #### [facility] [address] [place], [address] Cholesterol in LDL [Mass/Vol] 113 mg/dL Normal 0-130 [facility] Comment on above: Performed By: #### L 3100.5200, L100.0100, L500.4100, L500.4050 #### [facility] [address] [place], [address] Cholesterol in VLDL [Mass/Vol] 34 mg/dL Normal 5-40 [facility] Comment on above: Performed By: #### L 3100.5200, L100.0100, L500.4100, L500.4050 #### [facility] [address] [place], [address] Triglyceride [Mass/Vol] 170 mg/dL Normal [facility] Comment on above: Result Comment: The drugs N-Acetylcysteine and Metamizole may falsely depress this assay. Serum Triglycerides Reference Interval Normal <150 mg/dL Borderline high 150 - 199 mg/dL High 200 - 499 mg/dL Very High > or = 500 mg/dL Performed By: #### L 3100.5200, L100.0100, L500.4100, L500.4050 #### [facility] [address] [place], [address] Absolute lymphocyte countOrd ered By: Kandy Nice on 06-04-2023 Lymphocytes Auto (Unsp spec) [#/Vol] 1.97 10*3/uL 0.83-4.51 [facility] Automated lymphocyte count a s percentage of total leukocytesOrdered By: Kandy Nice on 06-04-2023 Lymphocytes/100 WBC Auto (Unsp spec) 28.8 % 19-41 [facility] Basophil percentageOrdered B y: Kandy Nice on 06-04-2023 Basophils/100 WBC (Bld) 0.9 % 0-1 [facility] Bilirubin [Mass/Vol] 0.40 mg/dL 0.20-1.00 [facility] Comment on above: For patients on eltr ombopag therapy, use of Dimension [place] TBIL is not recommended. Chloride [Moles/Vol] 102 mmol/L 98-107 [facility] Cholesterol [Mass/Vol] 187 mg/dL <200 [facility] Comment on above: <200 mg/dL Desirable 200-240 mg/dL Borderline >240 mg/dL High Risk Eosinophils/100 WBC (Bld) 1.6 % 0-5 [facility] Glucose [Mass/Vol] 99 mg/dL 74-106 [facility] [facility] Hemoglobin (Bld) [Mass/Vol] 15.3 g/dL 13.0-16.5 [facility] Monocytes/100 WBC (Bld) 7.9 % 0-10 [facility] Neutrophils (Bld) [#/Vol] 4.1 10*3/uL 2.0-7.7 [facility] Neutrophils/100 WBC (Bld) 60.5 % 47-70 [facility] Potassium [Moles/Vol] 3.8 mmol/L 3.5-5.1 [facility] Protein [Mass/Vol] 7.8 g/dL 6.4-8.2 [facility] Sodium [Moles/Vol] 137 mmol/L 136-145 [facility] Triglyceride [Mass/Vol] 307 mg/dL <199 [facility] Comment on above: The drugs N-Acetylcy steine and Metamizole may falsely depress this assay.Serum Triglycerides Reference Interval Normal <150 mg/dL Borderline high 150 - 199 mg/dL High 200 - 499 mg/dL Very High > or = 500 mg/dL WBC (Bld) [#/Vol] 6.8 10*3/uL 4.4-11.0 [facility] Determination of erythrocyte mean corpuscular volume (MCV)Ordered By: Kandy Nice on 06-04-2023 MCV (RBC) [Entitic vol] 86.5 fL 80-94 [facility] Erythrocyte distribution wid th ratioOrdered By: Kandy Nice on 06-04-2023 Erythrocyte distribution width (RBC) [Ratio] 12.4 % 11.6-14.6 [facility] Erythrocyte distribution wid th standard deviationOrdered By: Kandy Nice on 06-04-2023 Erythrocyte distribution width (RBC) [Entitic vol] 39.2 fL 35.1-43.9 [facility] Hematocrit Auto (Bld) [Volum e fraction]Ordered By: Kandy Nice on 06-04-2023 Hematocrit (Bld) [Volume fraction] 44.9 % 40-54 [facility] Immature granulocytes/100 WB C Auto (Bld)Ordered By: Kandy Nice on 06-04-2023 Immature granulocytes/100 WBC (Bld) 0.300 % 0.0-0.9 [facility] Comment on above: IG% - Immature Granu locytes (promyelocytes, myelocytes and metamyelocytes) > 1% indicates that a LEFT SHIFT is Present. Laboratory - Chemistry and C hemistry - challengeOrdered By: Kandy Nice on 06-04-2023 Albumin/Globulin [Mass ratio] 1.1 {ratio} 0.9-2.4 [facility] ALP [Catalytic activity/Vol] 75 U/L 45-117 [facility] ALT [Catalytic activity/Vol] 43 U/L 16-61 [facility] Cholesterol in HDL [Mass/Vol] 41 mg/dL >40 [facility] Comment on above: The drugs N-Acetylcy steine and Metamizole may falsely depress this assay. Reference Range HDL <40 mg/dL Low HDL Cholesterol HDL >or= 60 mg/dL High HDL Cholesterol Cholesterol in LDL [Mass/Vol] 85 mg/dL 0-130 [facility] CO2 [Moles/Vol] 30.0 mmol/L 21.0-32.0 [facility] Globulin (S) [Mass/Vol] 3.8 g/dL 2.2-4.2 [facility] Urea nitrogen/Creatinine [Mass ratio] 22.9 mg/mg 10-20 [facility] Laboratory - Hematology and Cell countsOrdered By: Kandy Nice on 06-04-2023 MCH (RBC) [Entitic mass] 29.5 pg 27.0-32.0 [facility] MCHC (RBC) [Mass/Vol] 34.1 g/dL 32-36 [facility] Nucleated RBC/100 WBC (Bld) [Ratio] 0 % 0-5 [facility] Platelet mean volume (Bld) [Entitic vol] 11.0 fL 6.2-12.0 [facility] Platelets (Bld) [#/Vol] 242 10*3/uL 150-450 [facility] No Panel InformationOrdered By: Kandy Nice on 06-04-2023 Estimated GFR (MDRD) Amer 94 mL/min >60 [facility] Comment on above: GFR Calc Estimated GFR (MDRD) Non-Af Amer 78 mL/min >60 [facility] Comment on above: Non- GFR Calc VLDL Cholesterol 61 mg/dL 5-40 [facility] RBC Auto (Bld) [#/Vol]Ordere d By: Kandy Nice on 06-04-2023 RBC (Bld) [#/Vol] 5.19 10*6/uL 4.6-6.2 [facility] Serum or plasma calcium tg urement (mass/volume)Ordered By: Kandy Nice on 06-04-2023 Calcium [Mass/Vol] 8.8 mg/dL 8.5-10.1 [facility] Serum or plasma creatinine m easurement (mass/volume)Ordered By: Kandy Nice on 06-04-2023 Creatinine [Mass/Vol] 1.09 mg/dL 0.70-1.30 [facility] Comment on above: The validity of the calculated GFR & GFRAA in patients over 70 years has not been determined. Clinical correlation is essential. Serum or plasma urea nitroge n measurement (mass/volume)Ordered By: Kandy Nice on 06-04-2023 Urea nitrogen [Mass/Vol] 25 mg/dL 7-18 [facility] Thin prep Papanicolaou smear with manual screeningOrdered By: Kandy Nice on 06-04-2023 Thin prep Papanicolaou smear with manual screening 4.0 g/dL 3.2-5.0 [facility] Thin prep Papanicolaou smear with manual screening 27 U/L 15-37 [facility] Thin prep Papanicolaou smear with manual screening 5 5-15 [facility] Whole blood hemoglobin A1c/t otal hemoglobin ratio (mass fraction)Ordered By: Kandy Nice on 06-04-2023 HbA1c (Bld) [Mass fraction] 5.2 % 3.8-5.6 [facility] Comment on above: Normal < 5.7 % Predi abetic 5.7 - 6.4 % Diabetic >or= 6.5 % Please note range changes. NM HEPATOBILIARY W EF AND/OR RXon 03-12-2020 NM HEPATOBILIARY W EF AND/OR RX * * *Final Report* * * DATE OF EXAM: Mar 12 2020 11:05AM ROLF 0021 - NM HEPATOBILIARY W EF AND/OR RX / PROCEDURE REASON: R10.11 RT UPPER QUAD PAIN R11.0 NAUSEA * * * * Physician Interpretation * * * * HEPATOBILIARY SCAN WITH GALLBLADDER EJECTION FRACTION: CLINICAL HISTORY: Right upper quadrant pain. TECHNIQUE: 5.5 mCi Tc-99m Choletec IV followed by 60 minutes of abdominal imaging This was followed by 2.0 mcg CCK, and additional imaging to calculate a gallbladder ejection fraction FINDINGS: There is prompt and homogeneous uptake by the liver, which appears grossly normal in size and shape. Gallbladder, and proximal small bowel activity are visualized, indicating cystic duct and common bile duct patency. After CCK, the gallbladder calculated gallbladder ejection fraction is 96% (normal > 35%). IMPRESSION: * Normal gallbladder functional response/EF is not a typical scintigraphic finding of chronic cholecystitis. Clinical correlation is recommended. * Patent cystic duct and CBD. Site Controller: PSCB Transcribe Date/Time: Mar 12 2020 11:27A Dictated by : MAGDALENA HORNE MD This examination was interpreted and the report reviewed and electronically signed by: MAGDALENA HORNE MD on Mar 12 2020 11:27AM EST [id number] [facility] PROGRESSon 03-12-2020 PROGRESS HNO ID: [id number] Author: Lesli FaulknerRt) Alix Ryan Service: ? Author Type: Tube Roller Type: Progress Notes Filed: 03/12/2020 10:16 AM Note Text: RADIOLOGY SERVICE PROGRESS NOTE SERVICE DATE: 03/12/2020 SERVICE TIME: 10:14 AM PATIENT IDENTITY VERIFICATION COMPLETED USING TWO (2) STANDARD IDENTIFIERS: Name and Date of confirmed by patient verbally FALL SCREENING: Has the patient had 2 falls in the last year or 1 fall with injury or currently using an Ambulatory Assistive Device (Walker, Cane, Wheelchair, Crutches, etc.)? No PATIENT GENDER DATA: .male ALLERGIES: Reviewed and unchanged MEDICATIONS REVIEWED: Not applicable PATIENT RELEVANT IMPLANT DATA REVIEWED: Not Applicable CREATININE: Creatinine Date Value Ref Range Status 12/13/2018 1.00 0.67 - 1.17 mg/dL Final 01/19/2015 0.82 0.70 - 1.40 mg/dL Final 03/14/2014 1.07 0.67 - 1.17 mg/dL Final eGFR-All Other Races Date Value Ref Range Status 01/19/2015 >60 . Final Comment: eGFR (Estimated GFR) Units of measure: mL/min/1.73 meters squared eGFR is derived from the reexpressed MDRD Study equation using the following parameters: serum creatinine, age, gender and race. The creatinine assay has been calibrated to be traceable to IDMS. An eGFR <60 mL/min/1.73m2 for >3 months is consistent with chronic kidney disease. Refer to KDOQI guidelines for clinical interpretation. In patients with unstable renal function, e.g. those with acute kidney injury, the eGFR may not accurately reflect actual GFR. P.O.C.T. RESULTS: N/A March 12, [address] PERFORMED: No IV SITE: Ambulatory: A peripheral IV was started in the Left antecubital site with a Butterfly: 22 gauge. POST EXAM PIV STATUS: Discontinued PROCEDURE TYPE: NM INJECT: HIDA w/EF. 5.5 mCi Tc99m CHOLETEC. CCK 2.0 micrograms intravenous at 10:00. ADMINISTRATION TIME: 08:50 PATIENT DISCHARGED TO: Ambulatory patient, left NM department area. A Diagnostic radioactive procedure has taken place, with no further precautions necessary other than routine body substance precautions. More information regarding radiation safety can be found using this link: [email or web address] %[email or web address] f SIGNATURE: RT Abdulaziz PATIENT NAME: Tl Arriaza DATE: March 12, 2020 TIME: 10:14 AM PAGER/CONTACT #: [facility] PROGRESS HNO ID: [id number] Author: Elise (Paul) PAUL Larkin Service: Radiology Author Type: Clinical Tube Roller Type: Progress Notes Filed: 03/12/2020 8:08 AM Note Text: Radiology Service Progress Note PATIENT NAME: Tl Arriaza DATE OF SERVICE: March 12, 2020 TIME: 8:08 AM PATIENT IDENTITY VERIFICATION COMPLETED USING TWO (2) IDENTIFIERS: Name and Date of confirmed by patient verbally and Name and Date of confirmed by identification band. FALL SCREENING: Has the patient had 2 falls in the last year or 1 fall with injury or currently using an Ambulatory Assistive Device (Walker, Cane, Wheelchair, Crutches, etc.)? No PATIENT GENDER DATA: Male PATIENT RELEVANT IMPLANT DATA REVIEWED: Not Applicable RADIOLOGY DEPARTMENT: Ultrasound PERIPHERAL IV DATA: Not applicable SIGNED BY: PAUL Fernandez March 12, 2020 8:08 AM [facility] US ABD RIGHT UPPER QUADRANTo n 03-12-2020 US ABD RIGHT UPPER QUADRANT * * *Final Report* * * DATE OF EXAM: Mar 12 2020 8:05AM MDU 1032 - US ABD RIGHT UPPER QUADRANT / PROCEDURE REASON: r10.11 right upper quadrant pain r11.0 nausea * * * * Physician Interpretation * * * * EXAMINATION: RIGHT UPPER QUADRANT ULTRASOUND CLINICAL HISTORY: Right upper quadrant pain and nausea TECHNIQUE: Sonography of the right upper quadrant was performed. Images were obtained and stored in a permanent archive and interpreted remotely. MQ: URUQ_2 COMPARISON: Abdominal sonogram dated 02/11/2013 RESULT: Pancreas: Normal sonographic appearance. Portions obscured: tail Liver: Echotexture: Normal, homogeneous. Echogenicity: Increased echogenicity with sparing near the gallbladder fossa and sam hepatis most compatible with hepatic steatosis. Surface contour: Smooth Lesions: None. Biliary: No intrahepatic biliary duct dilation. CBD: 0.5 cm at the hilum. Gallbladder: Present without evidence of gallstones, wall thickening or pericholecystic free fluid. Negative sonographic Del Cid's sign reported. Right Kidney: Measures 10.8 cm in longitudinal dimension. Normal cortical echogenicity. No hydronephrosis. Ascites: None. IMPRESSION: Hepatic steatosis with regions of focal sparing near the gallbladder fossa and sam hepatis. Site Controller: PSCB Transcribe Date/Time: Mar 12 2020 8:13A Dictated by : CLAUDIO ALEXANDER MD This examination was interpreted and the report reviewed and electronically signed by: CLAUDIO ALEXANDER MD on Mar 12 2020 8:16AM EST [id number] Normal [facility] Lactic acidon 12-14-2018 Lactate [Moles/Vol] 1.3 mmol/L Normal 0.4-2.0 [facility] Comment on above: Performed By: #### L LA #### [place] [address] Macroscopic Urinalysison Appearance (U) CLEAR Normal [facility] Comment on above: Performed By: #### L MACU #### [place] [address] Bilirubin Urine Negative Normal Negative [facility] Comment on above: Performed By: #### L MACU #### [place] [address] Color (U) YELLOW Normal [facility] Comment on above: Performed By: #### L MACU #### [place] [address] Glucose Ql (U) Negative Normal Negative [facility] Comment on above: Performed By: #### L MACU #### [place] [address] Hemoglobin,Urine Negative Normal Negative [facility] Comment on above: Performed By: #### L MACU #### [place] [address] Ketone Urine Negative Normal Negative [facility] Comment on above: Performed By: #### L MACU #### [place] [address] Leukocytes Esterase Negative Normal Negative [facility] Comment on above: Performed By: #### L MACU #### [place] [address] Nitrites Urine Negative Normal Negative [facility] Comment on above: Performed By: #### L MACU #### [facility] [address] [place] [address] pH (U) 5.5 [pH] Normal 5.0-8.0 [facility] Comment on above: Performed By: #### L MACU #### [facility] [address] [place] [address] Protein (U) [Mass/Vol] Negative Normal Negative [facility] Comment on above: Performed By: #### L MACU #### [facility] [address] [place] [address] Specific [place], Ur <=1.005 Normal 1.005-1.[address] [facility] Comment on above: Performed By: #### L MACU #### [facility] [address] [place] [address] Urobilinogen,Ur 0.2 EU/dL Normal 0.2-1.0 [facility] Comment on above: Performed By: #### L MACU #### [place] [address] Comprehensive Panelon 2018 Albumin [Mass/Vol] 4.2 g/dL Normal 3.4-5.0 [facility] Comment on above: Performed By: #### L P14 #### [place] [address] ALP [Catalytic activity/Vol] 79 U/L Normal 46-116 [facility] Comment on above: Performed By: #### L P14 #### [place] [address] ALT-SGPT Blood 49 U/L Normal 14-63 [facility] Comment on above: Performed By: #### L P14 #### [place] [address] Anion gap [Moles/Vol] 12 mmol/L Normal 8-[address] [facility] Comment on above: Performed By: #### L P14 #### [place] [address] AST-SGOT Blood 33 U/L Normal 15-37 [facility] Comment on above: Performed By: #### L P14 #### [facility] [address] [place], [place] [address] Bilirubin Ql (U) 0.3 mg/dL Normal 0.2-1.0 [facility] Comment on above: Performed By: #### L P14 #### [facility] [address] [place], [place] [address] Calcium [Mass/Vol] 9.4 mg/dL Normal 8.5-10.1 [facility] Comment on above: Performed By: #### L P14 #### [facility] [address] [place], [place] [address] CO2 Blood 32 mEq/L Normal 21-32 [facility] Comment on above: Performed By: #### L P14 #### [facility] [address] [place], [place] [address] Creatinine [Mass/Vol] 1.00 mg/dL Normal 0.67-1.[address] [facility] Comment on above: Performed By: #### L P14 #### [facility] [address] [place], [place] [address] Glucose [Mass/Vol] 111 mg/dL High 70-99 [facility] Comment on above: Performed By: #### L P14 #### [facility] [address] [place], [place] [address] Protein [Mass/Vol] 7.9 g/dL Normal 6.4-8.2 [facility] Comment on above: Performed By: #### L P14 #### [facility] [address] [place], [place] [address] Urea nitrogen [Mass/Vol] 16 mg/dL Normal 7-18 [facility] Comment on above: Performed By: #### L P14 #### [facility] [address] [place], [place] [address] Urea nitrogen/Creatinine [Mass ratio] 16 mg/mg Normal 10-20 [facility] Comment on above: Performed By: #### L P14 #### [facility] [address] [place], [place] [address] Chloride [Moles/Vol] 100 mmol/L Normal 98-109 [facility] Comment on above: Result Comment: Test ing performed on an [employer] i-STAT. Performed By: #### L P14 #### [place] [address] Potassium [Moles/Vol] 3.7 mmol/L Normal 3.5-4.[address] [facility] Comment on above: Result Comment: Test ing performed on an [employer] i-STAT. Performed By: #### L P14 #### [place] [address] Sodium [Moles/Vol] 140 mmol/L Normal 138-146 [facility] Comment on above: Result Comment: Test ing performed on an [employer] i-STAT. Performed By: #### L P14 #### [place] [address] Hemogram/Diffon 12-13-2018 Abs. Baso 0.03 thou/cmm Normal 0.00-0.08 [facility] Comment on above: Performed By: #### L CBCD #### [place] [address] Abs. [place] 0.44 thou/cmm Normal 0.20-1.00 [facility] Comment on above: Performed By: #### L CBCD #### [place] [address] Abs. Neut (ANC) 2.69 thou/cmm Low 3.00-5.67 [facility] Comment on above: Performed By: #### L CBCD #### [place] [address] Basophils/100 WBC (Bld) 0.6 % Normal [facility] Comment on above: Performed By: #### L CBCD #### [place] [address] Eosinophils (Bld) [#/Vol] 0.06 thou/cmm Normal 0.00-0.41 [facility] Comment on above: Performed By: #### L CBCD #### [place] [address] Eosinophils/100 WBC (Bld) 1.2 % Normal [facility] Comment on above: Performed By: #### L CBCD #### [facility] [address] [place], [place] [address] Erythrocyte distribution width (RBC) [Ratio] 12.7 % Normal 11.5-15.9 [facility] Comment on above: Performed By: #### L CBCD #### [facility] [address] [place], [place] [address] Hematocrit (Bld) [Volume fraction] 44.9 % Normal 42.0-52.0 [facility] Comment on above: Performed By: #### L CBCD #### [facility] [address] [place], [place] [address] Hemoglobin (Bld) [Mass/Vol] 15.8 g/dL Normal 14.0-18.0 [facility] Comment on above: Performed By: #### L CBCD #### [place] [address] Lymphocytes (Bld) [#/Vol] 1.98 thou/cmm Normal 1.50-3.65 [facility] Comment on above: Performed By: #### L CBCD #### [address] [address] Lymphocytes/100 WBC (Bld) 38.1 % Normal [facility] Comment on above: Performed By: #### L CBCD #### [address] [address] MCH (RBC) [Entitic mass] 29.8 pg Normal 27.0-31.0 [facility] Comment on above: Performed By: #### L CBCD #### [facility] [address] [place], [place] [address] MCHC (RBC) [Mass/Vol] 35.2 % Normal 32.0-36.[address] [facility] Comment on above: Performed By: #### L CBCD #### [address] [address] MCV (RBC) [Entitic vol] 84.6 fL Normal 80.0-94.0 [facility] Comment on above: Performed By: #### L CBCD #### [facility] [address] [place], [place] [address] Monocytes/100 WBC (Bld) 8.5 % Normal [facility] Comment on above: Performed By: #### L CBCD #### [facility] [address] [place], [place] [address] Platelet mean volume (Bld) [Entitic vol] 10.3 fL Normal 7.1-10.5 [facility] Comment on above: Performed By: #### L CBCD #### [facility] [address] [place], [place] [address] Platelets (Bld) [#/Vol] 211 thou/cmm Normal 150-400 [facility] Comment on above: Performed By: #### L CBCD #### [address] [address] RBC (Bld) [#/Vol] 5.31 mil/cmm Normal 4.60-6.20 [facility] Comment on above: Performed By: #### L CBCD #### [address] [address] Seg Neutrophil 51.6 % Normal [facility] Comment on above: Performed By: #### L CBCD #### [address] [address] WBC (Bld) [#/Vol] 5.2 thou/cmm Normal 4.8-10.5 [facility] Comment on above: Performed By: #### L CBCD #### [address] [address] Lipase Bloodon 12-13-2018 Lipase Blood 120 U/L Normal 73-393 [facility] Comment on above: Performed By: #### L LIP #### [address] [address] MDRD eGFRon 12-13-2018 GFR/1.73 sq M predicted among non-blacks MDRD (S/P/Bld) [Vol rate/Area] mL/min/{1.73_m2} Normal >60mL/min/1 .73m2 [facility] Comment on above: Result Comment: If t he patient is , multiply the result by 1.210. Performed By: #### L GFR #### [facility] [address] [place], [place] [address] Troponin Ion 12-13-2018 Troponin I.cardiac [Mass/Vol] ng/mL Normal <=0.07 [facility] Comment on above: Performed By: #### L TRP #### [facility] [address] [place], [place] [address] XR CHEST 1V FRONTALon 2018 XR CHEST 1V FRONTAL * * *Final Report* * * DATE OF EXAM: Dec 13 2018 9:57PM LDX 5290 - XR CHEST 1V FRONTAL / PROCEDURE REASON: Chest pain * * * * Physician Interpretation * * * * EXAMINATION: CHEST RADIOGRAPH (SINGLE VIEW AP OR PA) CLINICAL HISTORY: Chest pain MQ: XC1_5 Comparison: 03/12/2014 RESULT: Lines, tubes, and devices: None. Lungs and pleura: No confluent infiltrate, large pleural effusion or pneumothorax. Cardiomediastinal silhouette: Stable and within normal limits. Other: Unchanged appearance of the bones. IMPRESSION: No significant acute radiographic abnormality. Site Controller: PSCB Transcribe Date/Time: Dec 13 2018 9:59P Dictated by : STEPHANIE BEE MD This examination was interpreted and the report reviewed and electronically signed by: STEPHANIE BEE MD on Dec 13 2018 9:59PM EST Normal [facility] Vital Signs Date Time Vital Sign Value Performing Clinician Leighton lagunas 06-04-2023 19:24-0500 Body height 177.8 cm FEED RESEARCH TECHNICIANTanner Nice FEED RESEARCH TECHNICIAN Work Phone: [facility] 06-04-2023 19:24-0500 Body mass index (BMI) [Ratio] 33.3 kg/m2 FEED RESEARCH TECHNICIANTanner Nice FEED RESEARCH TECHNICIAN Work Phone: [facility] 06-04-2023 19:24-0500 Body temperature 97.7 [degF] DENEEN Nice FEED RESEARCH TECHNICIAN Work Phone: [facility] 06-04-2023 19:24-0500 Body weight 105.23 kg DENEEN Nice FEED RESEARCH TECHNICIAN Work Phone: [facility] 06-04-2023 19:24-0500 Diastolic blood pressure 70 mm[Hg] FEED RESEARCH TECHNICIAN-C Kandy Nice FEED RESEARCH TECHNICIAN Work Phone: [facility] 06-04-2023 19:24-0500 Heart rate 90 /min FEED RESEARCH TECHNICIAN-C Kandy Nice FEED RESEARCH TECHNICIAN Work Phone: [facility] 06-04-2023 19:24-0500 Respiratory rate 18 /min FEED RESEARCH TECHNICIAN-C Kandy Nice FEED RESEARCH TECHNICIAN Work Phone: [facility] 06-04-2023 19:24-0500 SaO2% (BldA) [Mass fraction] 94 % FEED RESEARCH TECHNICIAN-C Kandy Nice FEED RESEARCH TECHNICIAN Work Phone: [facility] 06-04-2023 19:24-0500 Systolic blood pressure 110 mm[Hg] FEED RESEARCH TECHNICIAN-C Kandy Nice FEED RESEARCH TECHNICIAN Work Phone: [facility] Encounters Encounter Date Encounter Type Care Provider Facility Start: 06-10-2024 End: 06-10-2024 ambulatory KANDY NICE Facility:[facility] Start: 05-16-2024 End: 05-16-2024 ambulatory Kandy Nice FEED RESEARCH TECHNICIAN Facility:[facility] Start: 06-04-2023 End: 06-04-2023 ambulatory FEED RESEARCH TECHNICIAN-Michael Nice FEED RESEARCH TECHNICIAN Work Phone: [facility] Work Phone: Start: 06-04-2023 End: 06-04-2023 Patient encounter procedure FEED RESEARCH TECHNICIAN-Michael Nice FEED RESEARCH TECHNICIAN Work Phone: [facility] Work Phone: Start: 05-23-2023 End: 05-23-2023 Patient encounter procedure FEED RESEARCH TECHNICIAN-C Kandy Nice FEED RESEARCH TECHNICIAN Work Phone: [facility] Work Phone: Payers Date Payer Category Payer Self-pay [id number] 2012 Unknown [id number] Unknown [id number] Social History Date Type Detail Facility Start: 05-23-2023 Tobacco smoking stat [facility] Unknown if ever smoked [facility] Start: 03-01-2020 None [facility] Start: 03-01-2020 Chew [facility] Start: 1980 Sex Assigned At Male [facility] Evaluation note Note Date & Type Note Facility Evaluation note Diagnosis Onset Date Encounter for examination re quired by Department of Transportation (DOT) acute Anxiety chronic Depression chronic [facility] Work Phone: Summary Purpose Family History No Family History Records Found Relationship Condition Age at Onset Recorded Date/T kadie Not Specified Unknown Hodgkin lymphoma Unknown Diabetes mellitus Unknown High blood cholesterol Unknown Cardiac disease Unknown Hypertension Unknown Disorder of thyroid Unknown father Myocardial infarction Unknown Advance Directives No Advanced Directives Records Found Advance Directive Response Recorded Date/ Time Living Will No May 23 9:47am Power of Store Receiving Specialist No May 23, 2023 9:47am Chief Complaint and Reason for Visit Chief Complaint DOT PHYSICAL/ [place] medication refills Reason for Visit Encounter for examin ation required by Department of Transportation (DOT) Anxiety Depression Additional Source Comments (unrecognized sect ion and content) No Status Records FoundNo Status Records FoundNo Status Records FoundNo Status Records Found INFORMATION SOURCE (unrecogn ized section and content) DATE CREATED AUTHOR 12/13/2018 [facility] DATE CREATED AUTHOR AUTHOR'S ORGANIZ ATION 03/13/2020 [facility] DATE CREATED AUTHOR AUTHOR'S ORGANIZ ATION 06/05/2024 [facility] DATE CREATED AUTHOR AUTHOR'S ORGANIZ ATION 06/11/2024 [facility] Care Teams (unrecognized sec tion and content) Team Status: Active Member Role Status Dates Kandy Nice FEED RESEARCH TECHNICIAN, FEED RESEARCH TECHNICIAN-C Primary Care Provider Active Team Status: Inactive Member Role Status Dates Kandy Nice FEED RESEARCH TECHNICIAN, FEED RESEARCH TECHNICIAN-C Primary Care Provider, Referr ing Provider Active Juan MARTINEZ, PA Attending Provider Active Team Status: Inactive Member Role Status Dates Kandy Nice FEED RESEARCH TECHNICIAN, FEED RESEARCH TECHNICIAN-C Primary Care Pr ovider, Attending Provider, Referring Provider Active Team Status: Inactive Member Role Status Dates Kandy Nice NP, FEED RESEARCH TECHNICIAN-C Primary Care Provider, Attend ing Provider Active Goals (unrecognized section and content) Goals may be documented in a n alternate section FOR RECORDS PERTAINING TO PATIENTS WHO ARE [...] BE BASED ON THE PRIMARY CLINICAL RECORDS. [facility] [employer], [facility]. provides no warranty or guarantee of the accuracy or completeness of information in this document.
[2024-12-30 21:58] LABS: Hematocrit 42.7 % (40-54); Hemoglobin 14.9 g/dL (13.0-16.5); Immature Granulocytes Count 0.020 X10^3/uL (0.0-0.0); Mean Corp Hgb Conc 34.9 g/dL (32-36); Mean Corpuscular Volume 86.6 fL (80-94); Mean Platelet Vol. 10.8 fl (6.2-12.0); NRBC Flagged by Analyzer 0 % (0-5); Platelet Count 267 K/mm3 (150-450); RBC Distribution Width CV 13.2 % (11.6-14.6); RBC Distribution Width SD 41.0 fl (35.1-43.9); Red Blood Count 4.93 M/mm3 (4.6-6.2); White Blood Count 5.7 K/mm3 (4.4-11.0)
[2024-12-30 22:58] LABS: PSA,Total- Diagnostic 0.59 ng/mL (0.00-4.00)
== END | disposition home or self-care (01) ==
PROVIDERS: PCP Nurse Practitioner; Visit Provider Nurse Practitioner
DX: R79.89 Other specified abnormal findings of blood chemistry (principal)
CPT/HCPCS: 84153; 84402; 84403; 85025